=== PATIENT | male | born 1980 | race Caucasian/White ===

== ENCOUNTER 2016-09-12 15:38 | Emergency (ER) | payer OTHER ==
[~2016-09-12] VITALS: Ht 185.4 cm; Wt 90.0 kg
--- NOTE | 2016-09-12 15:55 | PD ---
HPI Chief Complaint: psychiatric evaluation Time Seen by Provider: 15:52 Travel History International Travel<30 days: No Contact w/Intl Traveler<30days: No History of Present Illness HPI 36-year-old male presents to the emergency Department under [place] act by local police for psychiatric evaluation. The patient states he has been fighting with his girlfriend for the past month. He states he got frustrated today and took a knife and stated watch this and cut his left wrist. He states this was a suicide attempt. Patient reports that he is going to [facility] for psychiatric care. He states that he is on unknown psychiatric medications, but states he has been diagnosed with bipolar and schizophrenia. The patient states that he has an alcoholic, but states he is only drank 3 beers this week. He is also a tobacco user, but denies any illegal drug use. Patient has no other complaints other than laceration to the left wrist. He states his tetanus immunization has been within 5 years. [facility] Social History Alcohol Use: Yes Tobacco Use: Yes Substance Use: No Allergies-Medications (Allergen,Severity, Reaction): Coded Allergies: No Known Allergies (Unverified , 09/12/16) Review of Systems Except as stated in HPI: all other systems reviewed are Neg Physical Exam Narrative GENERAL: Well-nourished, well-developed male patient, ambulatory. Afebrile. SKIN: Focused skin assessment warm/dry. Patient has a 2 cm superficial laceration to the left anterior wrist. HEAD: Normocephalic. Atraumatic. EYES: No scleral icterus. No injection or drainage. NECK: Supple, trachea midline. No JVD or lymphadenopathy. CARDIOVASCULAR: Regular rate and rhythm without murmurs, gallops, or rubs. RESPIRATORY: Breath sounds equal bilaterally. No accessory muscle use. Lungs sounds are clear to auscultation. GASTROINTESTINAL: Abdomen soft, non-tender, nondistended. MUSCULOSKELETAL: No cyanosis, or edema. Patient has full strength of all digits of the left hand and full range of motion. PSYCHIATRIC: No delusional thought processes. No hallucinations. Data Data Last Documented VS Vital Signs Date Time Temp Pulse Resp B/P Pulse Ox O2 Delivery O2 Flow Rate FiO2 09/12/16 16:02 92 18 09/12/16 16:02 98.1 119/72 96 Room Air Orders Complete Blood Count With Diff (09/12/16 15:50) Comprehensive Metabolic Panel (09/12/16 15:50) Psych Screen (09/12/16 15:50) Drug Screen, Random Urine (09/12/16 15:50) Alcohol (Ethanol) (09/12/16 15:50) Labs Laboratory Tests Test 09/12/16 16:12 White Blood Count 6.0 TH/MM3 Red Blood Count 4.26 MIL/MM3 Hemoglobin 13.4 GM/DL Hematocrit 40.1 % Mean Corpuscular Volume 94.3 FL Mean Corpuscular Hemoglobin 31.6 PG Mean Corpuscular Hemoglobin 33.5 % Concent Red Cell Distribution Width 13.1 % Platelet Count 232 TH/MM3 Mean Platelet Volume 9.2 FL Neutrophils (%) (Auto) 57.1 % Lymphocytes (%) (Auto) 29.3 % Monocytes (%) (Auto) 8.4 % Eosinophils (%) (Auto) 4.0 % Basophils (%) (Auto) 1.2 % Neutrophils # (Auto) 3.4 TH/MM3 Lymphocytes # (Auto) 1.7 TH/MM3 Monocytes # (Auto) 0.5 TH/MM3 Eosinophils # (Auto) 0.2 TH/MM3 Basophils # (Auto) 0.1 TH/MM3 CBC Comment DIFF FINAL Differential Comment Sodium Level 142 MEQ/L Potassium Level 3.5 MEQ/L Chloride Level 110 MEQ/L Carbon Dioxide Level 21.8 MEQ/L Anion Gap 10 MEQ/L Blood Urea Nitrogen 16 MG/DL Creatinine 0.81 MG/DL Estimat Glomerular Filtration 107 ML/MIN Rate Random Glucose 118 MG/DL Calcium Level 8.6 MG/DL Total Bilirubin 0.3 MG/DL Aspartate Amino Transf 18 U/L (AST/SGOT) Alanine Aminotransferase 31 U/L (ALT/SGPT) Alkaline Phosphatase 75 U/L Total Protein 7.8 GM/DL Albumin 4.1 GM/DL Urine Opiates Screen NEG Urine Barbiturates Screen NEG Urine Amphetamines Screen NEG Urine Benzodiazepines Screen NEG Urine Cocaine Screen NEG Urine Cannabinoids Screen POS Ethyl Alcohol Level 258 MG/DL [facility] Medical Decision Making Medical Screen Exam Complete: Yes Emergency Medical Condition: Yes Medical Record Reviewed: Yes Differential Diagnosis Depression versus bipolar disorder versus schizophrenia versus substance abuse Narrative Course 36-year-old male presents to the emergency department under [place] act for psychiatric evaluation. Patient does have a 2 cm superficial laceration to the left wrist. He states this was a suicide attempt. CBC, CMP, alcohol level, urine drug screen ordered and pending. I gave the patient the option of leaving the laceration alone or placing some glue over, and he would like it to be glued. CBC shows no acute abnormality. CMP shows no acute abnormality. Alcohol level is 258. Urine drug screen is positive for cannabinoids. Patient is medically cleared for psychiatric screening and disposition. Mental health screening discussed with the patient. Psychiatric screen ordered. Procedures Procedure Narrative LACERATION LOCATION: Left anterior wrist LENGTH: 2 cm NUMBER OF STITCHES/BHAVIK: Dermabond REPAIR: The area of the laceration was prepped with Betadine and sterilely draped. The wound was copiously irrigated and explored without evidence of foreign body, tendon injury or neurovascular injury. The wound was closed using Dermabond. This was a single layer repair. A sterile dressing was applied. The patient was advised to keep the dressing clean and dry. Patient tolerated the procedure well. Diagnosis Primary Impression: Depression Qualified Code: F32.9 - Depression, unspecified depression type Additional Instructions: Do not pick at skin glue. Do not apply creams or lotions. Do not soak skin glue. Skin glue will come off on its own in approximately 5-7 days. Keep clean and dry. Follow up with your primary care physician. Return to the emergency department for any acute, worsening of symptoms. Condition: Stable Marianna Gallagher September 12, 2016 15:55 Condition: Stable Marianna Gallagher September 12, 2016 15:55
[2016-09-12 16:02] VITALS: BP 119/72; PULSE 91; RESP 18; TEMP 98.1; O2SAT 96
[2016-09-12 16:31] LABS: AUTOMATED NEUTROPHIL # 3.4 TH/MM3 (1.8-7.7); BASOPHIL # 0.1 TH/MM3 (0-0.2); BASOPHIL % 1.2 % (0.0-2.0); EOSINOPHIL # 0.2 TH/MM3 (0-0.4); HEMATOCRIT 40.1 % (39.0-51.0); HEMO FLAGS DIFF FINAL; LYMPH % 29.3 % (9.0-44.0); LYMPHOCYTE # 1.7 TH/MM3 (1.0-4.8); MEAN CELL VOLUME 94.3 FL (80.0-100.0); MEAN CORPUSCULAR HEMOGLOBIN 31.6 PG (27.0-34.0); MEAN CORPUSCULAR HGB CONC 33.5 % (32.0-36.0); MONO % 8.4 % (0.0-8.0); NEUT % 57.1 % (16.0-70.0); PLATELET COUNT 232 TH/MM3 (150-450); RED BLOOD COUNT 4.26 MIL/MM3 (4.50-5.90); RED CELL DISTRIBUTION WIDTH 13.1 % (11.6-17.2)
[2016-09-12 16:49] LABS: AMPHETAMINE, URINE NEG (NEG); BARBITURATES, URINE NEG (NEG); COCAINE, URINE NEG (NEG)
[2016-09-12 16:57] LABS: ALT (GPT) 31 U/L (12-78); ANION GAP 10 MEQ/L (5-15); AST (GOT) 18 U/L (15-37); BICARBONATE 21.8 MEQ/L (21.0-32.0); BLOOD UREA NITROGEN 16 MG/DL (7-18); CHLORIDE 110 MEQ/L (98-107); GLOMERULAR FILTRATION RATE 107 ML/MIN (>89); POTASSIUM 3.5 MEQ/L (3.5-5.1); SODIUM (NA) 142 MEQ/L (136-145)
[2016-09-12 16:59] LABS: ALKALINE PHOSPHATASE 75 U/L (45-117); TOTAL BILIRUBIN ADULT 0.3 MG/DL (0.2-1.0)
[2016-09-12 19:05] VITALS: BP 112/70; PULSE 77; RESP 18; TEMP 97.8; O2SAT 95
[2016-09-12] MEDS ORDERED: INVE6TAB3 PO (20:05)
[2016-09-12 22:59] VITALS: BP 101/54; PULSE 75; RESP 16; O2SAT 96
[2016-09-13] MEDS ORDERED: OLANZapine IM 10 MG VIAL IM ONE (00:30)
[2016-09-13 02:28] VITALS: BP 134/63; PULSE 64; RESP 16; O2SAT 98
== END 2016-09-13 03:40 ==
LOC: NEPE 15:38 → NEPJ 09-13 03:40
DX: S61.512A Laceration without foreign body of left wrist, initial encounter (principal); F32.9 Major depressive disorder, single episode, unspecified; F31.9 Bipolar disorder, unspecified; F20.9 Schizophrenia, unspecified; F12.90 Cannabis use, unspecified, uncomplicated; X78.1XXA Intentional self-harm by knife, initial encounter; Y92.009 Unspecified place in unspecified non-institutional (private) residence as the place of occurrence of the external cause; Z72.0 Tobacco use
CPT/HCPCS: 12001; 80053; 80307; 85025; 96372